=== PATIENT | male | born 1965 | race Caucasian/White ===

== ENCOUNTER 2019-01-14 14:38 | Inpatient (IN) | payer OTHER ==
[2019-01-14 19:58] VITALS: BMI 26.0
--- NOTE | 2019-01-14 21:25 | HP ---
COWS - Scale Resting Pulse: 1= [place] 81-100 Sweatin= Chills/Flushing Restless Observation: 3= Extraneous Movement Pupil Size: 1= Pupils >than Normal Bone or Joint Aches: 2= Severe Diffuse Aches Runny Nose/ Eye Tearin= Nasal Congestion GI Upset > 30mins: 3= Vomiting/Diarrhea Tremor Observation: 1= Tremor [place], Not Seen Yawning Observation: 1= 1-2x During Session Anxiety or Irritability: 1=Feels Anxious/Irritable Goose Flesh Skin: 0=Smooth Skin COWS Score: 15 CIWA Score - Admission Criteria [facility]ASAS Guidelines: Admission for Medically Managed Detox: Requires at least one of the followin. CIWA greater than 12 2. Seizures within the past 24 hours 3. Delirium tremens within the past 24 hours 4. Hallucinations within the past 24 hours 5. Acute intervention needed for co occurring medical disorder 6. Acute intervention needed for co occurring psychiatric disorder 7. Severe withdrawal that cannot be handled at a lower level of care (continued vomiting, continued diarrhea, abnormal vital signs) requiring intravenous medication and/or fluids 8. Admission ROS S - HPI Chief Complaint: heroin detox 53 yo with h/o depression, L knee pain, says he came off methadone MAT about 7 months ago and relapsed within a few days to using heroin. Says he does not like to be on methadone. 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 Says he went to see his counselor at the program requesting a detox facility and so was referred here today. pt states he is tired of using and is hoping to be abstinent after detox/rehab heroin- 3 bundles a day, IV, no h/o OD- alcohol- occasional use benzo- klonopin 2mg/day- buys from street [facility]- no tobacco- 30 cigs a day DUR- no recent controlled substances Utox: THC, opiates Allergies/Adverse Reactions: Allergies Allergy/AdvReac Type Severity Reaction Status Date / Time No Known Allergies Allergy Verified 01/19/12 10:43 - Ebola screening Have you traveled outside of the country in the last 21 days: No (N) Have you had contact with anyone from an Ebola affected area: No Do you have a fever: No Patient History - Patient Medical History Hx Anemia: No Hx Asthma: No Hx Chronic Obstructive Pulmonary Disease (COPD): No Hx Cancer: No Hx Cardiac Disorders: No Hx Congestive Heart Failure: No Hx Hypertension: No Hx Hypercholesterolemia: No Hx Pacemaker: No HX Cerebrovascular Accident: No Hx Seizures: No Hx Dementia: No Hx Diabetes: No Hx Gastrointestinal Disorders: No Hx Genitourinary Disorders: No Hx Sexually Transmitted Disorders: No Hx Renal Disease (ESRD): Yes (kidney stones) Hx Thyroid Disease: No Hx Human Immunodeficiency Virus (HIV): No Hx Hepatitis C: Yes (tx. with interferon 2001) Hx Depression: Yes (not on meds at this time) Hx Suicide Attempt: No Hx Schizophrenia: No Other Medical History: depression, knee pain - Patient Surgical History Past Surgical History: No Hx Neurologic Surgery: No Hx Cataract Extraction: No Hx Cardiac Surgery: No Hx Lung Surgery: No Hx Breast Surgery: No Hx Breast Biopsy: No Hx Abdominal Surgery: No Hx Appendectomy: No Hx Cholecystectomy: No Hx Genitourinary Surgery: Yes (stent placed for kidney stone removal) Hx Section: No Hx Orthopedic Surgery: No Anesthesia Reaction: No - PPD History Documented Results: Positive w/o proof Implanted On Prior [facility] Admission?: No PPD to be Administered?: No - Smoking Cessation Smoking history: Current every day smoker Have you smoked in the past 12 months: Yes Aproximately how many cigarettes per day: 30 Hx Chewing Tobacco Use: No Initiated information on smoking cessation: Yes 'Breaking Loose' booklet given: 01/14/19 - Substances abused Heroin Substance route: Injection Amount used: 30 bags /day Age of first use: 15 Date of last use: 01/14/19 Alcohol Substance route: Oral Frequency: Daily Amount used: 12 pack beer /day Age of first use: 12 Date of last use: 01/13/19 Benzodiazepine (Klonopin) Substance route: Oral Frequency: 1-2 times per week Amount used: 2 mg Age of first use: 23 Date of last use: 01/12/19 Family Disease History - Family Disease History Family History: Denies (pt denies) Admission Physical Exam BHS - Vital Signs Vital Signs: Vital Signs - 24 hr 01/14/19 19:53 Temperature 98.4 F Pulse Rate 80 Respiratory 19 Rate Blood Pressure 138/95 - Physical General Appearance: Yes: Mild Distress, Thin HEENTM: Yes: Hearing grossly Normal Respiratory: Yes: Within Normal Limits, Lungs Clear Cardiology: Yes: Within Normal Limits, Regular Rhythm, Regular Rate Abdominal: Yes: Within Normal Limits, Flat, Soft Back: Yes: Within Normal Limits, Normal Inspection Musculoskeletal: Yes: Within Normal Limits, Gait Steady Extremities: Yes: Within Normal Limits, Normal Inspection, Normal Range of Motion Neurological: Yes: Within Normal Limits, control officer II-XII NML intact, Fully Oriented, Alert Integumentary: Yes: Within Normal Limits, Track Price (bilateral arms- antecubital fossa) Lymphatic: Yes: Within Normal Limits - Diagnostic (1) Opioid use disorder Current Visit: Yes Status: Acute (2) Benzodiazepine abuse Current Visit: Yes Status: Acute (3) Marijuana dependence Current Visit: Yes Status: Acute (4) Depression Current Visit: Yes Status: Acute Breathalyzer - Breathalyzer Breathalyzer: 0 Urine Drug Screen - Test Device Lot number: [id number] Expiration date: 12/18/19 - Control Is test valid?: Yes - Results Drug screen NEGATIVE: No Urine drug screen results: THC-Marijuana, MOP-Opiates Inpatient Rehab Admission - Rehab Decision to Admit Inpatient rehab admission?: No
[2019-01-14] MEDS ORDERED: MAGNESIUM HYDROX 2400MG/30ML ORAL SUSPENSION 30 ML CUP PO PRN (21:37)
[2019-01-14] MEDS ORDERED: hydrOXYzine PAMOATE 25 MG CAPSULE (FP) PO PRN (21:37)
[2019-01-14] MEDS ORDERED: MAG HYDROX/AL HYDROX/SIMETH 30 ML UNIT-DOSE CUP PO PRN (21:37)
[2019-01-14] MEDS ORDERED: MAGNESIUM CITRATE 300 ML BOTTLE PO PRN (21:37)
[2019-01-14] MEDS ORDERED: IBUPROFEN 400 MG TABLET (FP) PO PRN (21:37)
[2019-01-14] MEDS ORDERED: ACETAMINOPHEN 325 MG TABLET (FP) PO PRN (21:37)
[2019-01-14] MEDS ORDERED: NICOTINE POLACRILEX 4 MG GUM BUC PRN (21:37)
[2019-01-14] MEDS ORDERED: BISMUTH SUBSALICYLATE 524 MG/30 ML UD PO PRN (21:37)
[2019-01-14] MEDS ORDERED: MENTHOL/PHENOL 1 EACH UD MM PRN (21:37)
[2019-01-14] MEDS ORDERED: METHADONE HCL 10 MG TABLET (FOR DETOX USE ONLY) PO ONE (23:00)
[2019-01-14] MEDS: THIAMINE HCL 100 MG TABLET (FP) PO SCH (23:23)
[2019-01-14] MEDS: cloNIDine HCL 0.1 MG TABLET PO PRN (23:23)
[2019-01-15 07:34] LABS: EPI CELLS 0.6 /HPF (0-5/HPF); HYALINE CASTS 0 /lpf (0-8); PH,URINE 5.5 (5.0-8.0); URINE APPEARANCE CLOUDY; URINE BACTERIA 3.9 /hpf (NEGATIVE); URINE BILIRUBIN NEGATIVE (NEGATIVE); URINE COLOR YELLOW; URINE GLUCOSE (UA) NEGATIVE (NEGATIVE); URINE KETONE NEGATIVE (NEGATIVE); URINE LEUK ESTERASE TRACE (NEGATIVE); URINE NITRITE NEGATIVE (NEGATIVE); URINE PROTEIN NEGATIVE (NEGATIVE); URINE RBC 0 /hpf (0-4); URINE UROBILINOGEN 0.2 mg/dL (0.2-1.0); URINE WBC 2 /hpf (0-5)
[2019-01-15] MEDS: METHOCARBAMOL 500 MG TABLET PO PRN ×2 (09:51→19:05)
[2019-01-15] MEDS: NICOTINE 21 MG/24 HOURS TOPICAL PATCH TD SCH (09:51)
[2019-01-15] MEDS: PRENATAL VITAMINS W/ FOLIC ACID TABLET (FP) PO SCH (09:51)
[2019-01-15] MEDS ORDERED: METHADONE HCL 10 MG TABLET (FOR DETOX USE ONLY) PO ONE (10:00)
--- NOTE | 2019-01-15 11:05 | PN ---
S COWS - Scale Resting Pulse: 0= [place] 80 or Below Sweatin= Chills/Flushing Restless Observation: 1= Difficult to Sit Still Pupil Size: 1= Pupils >than Normal Bone or Joint Aches: 1= Mild Discomfort Runny Nose/ Eye Tearin= Nasal Congestion GI Upset > 30mins: 0= None Tremor Observation of Outstretched Hands: 2= Slight Tremor Visible Yawning Observation: 2= >3x During Session Anxiety or Irritability: 2=Irritable/Anxious Goose Flesh Skin: 3=Piloerection COWS Score: 14 BHS Progress Note (SOAP) Subjective: body ache irritable restlessness Objective: 01/15/19 11:04 Vital Signs Temperature 96.8 F L 01/15/19 09:10 Pulse Rate 65 01/15/19 09:10 Respiratory Rate 18 01/15/19 09:10 Blood Pressure 132/82 01/15/19 09:10 O2 Sat by Pulse Oximetry (%) Laboratory Last Values Urine Color Yellow 01/14/19 10:00 Urine Appearance Cloudy 01/14/19 10:00 Urine pH 5.5 (5.0-8.0) 01/14/19 10:00 Ur Specific [place] 1.021 (1.010-1.035) 01/14/19 10:00 Urine Protein Negative (NEGATIVE) 01/14/19 10:00 Urine Glucose (UA) Negative (NEGATIVE) 01/14/19 10:00 Urine Ketones Negative (NEGATIVE) 01/14/19 10:00 Urine Blood Negative (NEGATIVE) 01/14/19 10:00 Urine Nitrite Negative (NEGATIVE) 01/14/19 10:00 Urine Bilirubin Negative (NEGATIVE) 01/14/19 10:00 Urine Urobilinogen 0.2 mg/dL (0.2-1.0) 01/14/19 10:00 Ur Leukocyte Esterase Trace (NEGATIVE) 01/14/19 10:00 Urine WBC (Auto) 2 /hpf (0-5) 01/14/19 10:00 Urine RBC (Auto) 0 /hpf (0-4) 01/14/19 10:00 Urine Casts (Auto) 0 /lpf (0-8) 01/14/19 10:00 U Epithel Cells (Auto) 0.6 /HPF (0-5/HPF) 01/14/19 10:00 Urine Bacteria (Auto) 3.9 /hpf (NEGATIVE) 01/14/19 10:00 lab noted Assessment: 01/15/19 11:05 opiate withdrawal sx Plan: continue detox discuss medication assisted maintenance treatment program
[2019-01-15 11:54] LABS: ALBUMIN 3.5 g/dl (3.4-5.0); BILIRUBIN,TOTAL 0.4 mg/dL (0.2-1); CALCIUM 9.4 mg/dL (8.5-10.1); CREATININE 0.7 mg/dL (0.55-1.3); POTASSIUM 4.2 mmol/L (3.5-5.1)
[2019-01-15 12:04] LABS: HEMATOCRIT 42.6 % (35.4-49); HEMOGLOBIN 13.9 GM/dL (11.7-16.9); MCH 28.6 pg (25.7-33.7); MCHC 32.5 g/dl (32.0-35.9); MEAN CELL VOLUME 87.9 fl (80-96); MEAN PLT VOLUME 10.1 fl (7.5-11.1); PLATELET COUNT 171 K/MM3 (134-434); RBC 4.85 M/mm3 (4.00-5.60); RDW 15.4 % (11.9-15.9); WHITE BLOOD COUNT 5.3 K/mm3 (4.0-10.0)
[2019-01-15] MEDS: ONDANSETRON *ODT* 4 MG TABLET SL PRN (12:20)
[2019-01-15] MEDS ORDERED: TRIMETHOBENZAMIDE HCL 200MG/2ML INJ IM ONE (18:45)
--- NOTE | 2019-01-15 19:27 | PN ---
[facility] Progress Note Note: S/P FALL, CLIENT SEEN ON FLOOR LEFT SIDE LYING HOLDING LEFT BROW. UNWITNESSED BY STAFF BUT ROOM MATE STATES HE SAW THE CLIENT FALL OUT OF BED. CLIENT STATES HE STRUCK THE LEFT SIDE OF HIS FACE ON THE FLOOR AND ALSO C/O LEFT KNEE PAIN ( CHRONIC). DENIES LOC, +LIGHTHEADEDNESS. Vital Signs Temperature 97.3 F L 01/15/19 19:27 Pulse Rate 66 01/15/19 19:27 Respiratory Rate 18 01/15/19 19:27 Blood Pressure 146/81 01/15/19 19:27 O2 Sat by Pulse Oximetry (%) A/O X3 APPEARS IN MODERATE DISTRESS LYING ON FLOOR REQUIRING 3 PERSON ASSIST OFF THE FLOOR HEENT- NCAT, EOMI, SHO, CV- RRR LUNGS CTAB SPINE- NO INJURIES NOT FROM W/O LIMITATIONS EXTREMITIES- C/O PAIN TO L KNEE (CHRONIC SKIN- DRY INTACT A- S/P FALL P- TRANSFER TO [facility] FOR CT OF HEAD XRAY OF LEFT KNEE CLIENT SIGNED OUT TO DR. WRIGHT
[2019-01-15] MEDS: THIAMINE HCL 100 MG TABLET (FP) PO SCH (22:40)
[2019-01-16] MEDS: clonazePAM 0.5 MG TABLET PO PRN (06:36)
[2019-01-16] MEDS: cloNIDine HCL 0.1 MG TABLET PO PRN (06:36)
[2019-01-16] MEDS ORDERED: METHADONE HCL 10 MG TABLET (FOR DETOX USE ONLY) PO ONE (10:00)
[2019-01-16] MEDS: NICOTINE 21 MG/24 HOURS TOPICAL PATCH TD SCH (10:04)
[2019-01-16] MEDS: PRENATAL VITAMINS W/ FOLIC ACID TABLET (FP) PO SCH (10:04)
[2019-01-16] MEDS ORDERED: cloNIDine HCL 0.1 MG TABLET PO PRN (11:21)
--- NOTE | 2019-01-16 11:22 | PN ---
BHS COWS - Scale Resting Pulse: 0= [place] 80 or Below Sweatin= Chills/Flushing Restless Observation: 1= Difficult to Sit Still Pupil Size: 0= Normal to Room Light Bone or Joint Aches: 1= Mild Discomfort Runny Nose/ Eye Tearin= Nasal Congestion GI Upset > 30mins: 1= Stomach Cramp Tremor Observation of Outstretched Hands: 2= Slight Tremor Visible Yawning Observation: 1= 1-2x During Session Anxiety or Irritability: 2=Irritable/Anxious Goose Flesh Skin: 0=Smooth Skin COWS Score: 10 BHS Progress Note (SOAP) Subjective: patient denies pain from fall no bruises no swelling noted alert speech coherent ambulating with steady gait patient "vomited" x 1 white saliva noted nurse report that white form noted tigan IM order patient refuses tigan IM "Its hurts" zofran 8 mg sl x 1 Objective: 01/16/19 11:41 Vital Signs Temperature 96.9 F L 01/16/19 11:38 Pulse Rate 55 L 01/16/19 11:38 Respiratory Rate 18 01/16/19 11:38 Blood Pressure 136/99 01/16/19 11:38 O2 Sat by Pulse Oximetry (%) Laboratory Last Values WBC 5.3 K/mm3 (4.0-10.0) 01/15/19 08:20 RBC 4.85 M/mm3 (4.00-5.60) 01/15/19 08:20 Hgb 13.9 GM/dL (11.7-16.9) 01/15/19 08:20 Hct 42.6 % (35.4-49) 01/15/19 08:20 MCV 87.9 fl (80-96) 01/15/19 08:20 MCH 28.6 pg (25.7-33.7) 01/15/19 08:20 MCHC 32.5 g/dl (32.0-35.9) 01/15/19 08:20 RDW 15.4 % (11.9-15.9) 01/15/19 08:20 Plt Count 171 K/MM3 (134-434) 01/15/19 08:20 MPV 10.1 fl (7.5-11.1) 01/15/19 08:20 Sodium 139 mmol/L (136-145) 01/15/19 08:20 Potassium 4.2 mmol/L (3.5-5.1) 01/15/19 08:20 Chloride 106 mmol/L (98-107) 01/15/19 08:20 Carbon Dioxide 27 mmol/L (21-32) 01/15/19 08:20 Anion Gap 6 MMOL/L (8-16) L 01/15/19 08:20 BUN 11 mg/dL (7-18) 01/15/19 08:20 Creatinine 0.7 mg/dL (0.55-1.3) 01/15/19 08:20 Est GFR (CKD-EPI)AfAm 123.13 01/15/19 08:20 Est GFR (CKD-EPI)NonAf 106.24 01/15/19 08:20 Random Glucose 135 mg/dL (74-106) H 01/15/19 08:20 Calcium 9.4 mg/dL (8.5-10.1) 01/15/19 08:20 Total Bilirubin 0.4 mg/dL (0.2-1) 01/15/19 08:20 AST 14 U/L (15-37) L 01/15/19 08:20 ALT 18 U/L (13-61) 01/15/19 08:20 Alkaline Phosphatase 87 U/L (45-117) 01/15/19 08:20 Total Protein 7.0 g/dl (6.4-8.2) 01/15/19 08:20 Albumin 3.5 g/dl (3.4-5.0) 01/15/19 08:20 Urine Color Yellow 01/14/19 10:00 Urine Appearance Cloudy 01/14/19 10:00 Urine pH 5.5 (5.0-8.0) 01/14/19 10:00 Ur Specific [place] 1.021 (1.010-1.035) 01/14/19 10:00 Urine Protein Negative (NEGATIVE) 01/14/19 10:00 Urine Glucose (UA) Negative (NEGATIVE) 01/14/19 10:00 Urine Ketones Negative (NEGATIVE) 01/14/19 10:00 Urine Blood Negative (NEGATIVE) 01/14/19 10:00 Urine Nitrite Negative (NEGATIVE) 01/14/19 10:00 Urine Bilirubin Negative (NEGATIVE) 01/14/19 10:00 Urine Urobilinogen 0.2 mg/dL (0.2-1.0) 01/14/19 10:00 Ur Leukocyte Esterase Trace (NEGATIVE) 01/14/19 10:00 Urine WBC (Auto) 2 /hpf (0-5) 01/14/19 10:00 Urine RBC (Auto) 0 /hpf (0-4) 01/14/19 10:00 Urine Casts (Auto) 0 /lpf (0-8) 01/14/19 10:00 U Epithel Cells (Auto) 0.6 /HPF (0-5/HPF) 01/14/19 10:00 Urine Bacteria (Auto) 3.9 /hpf (NEGATIVE) 01/14/19 10:00 RPR Titer Nonreactive (NONREACTIVE) 01/15/19 08:20 HIV 1&2 Antibody Screen Negative 01/15/19 08:20 HIV P24 Antigen Negative 01/15/19 08:20 lab noted Assessment: 01/16/19 11:41 opiate withdrawal sx Plan: continue detox
[2019-01-16] MEDS ORDERED: TRIMETHOBENZAMIDE HCL 200MG/2ML INJ IM ONE (11:30)
[2019-01-16] MEDS: ONDANSETRON *ODT* 4 MG TABLET SL PRN (12:04)
[2019-01-16] MEDS: amLODIPine BESYLATE 5 MG TABLET (FP) PO SCH ×2 (12:05→22:23)
[2019-01-16] MEDS: RANITIDINE HCL 150 MG TABLET (FP) PO SCH ×2 (12:05→22:23)
[2019-01-16] MEDS ORDERED: ONDANSETRON *ODT* 4 MG TABLET SL ONE (12:20)
[2019-01-16] MEDS: THIAMINE HCL 100 MG TABLET (FP) PO SCH (22:22)
[2019-01-16] MEDS: MELATONIN 5 MG TABLETS PO PRN (22:23)
[2019-01-17] MEDS: clonazePAM 0.5 MG TABLET PO PRN ×3 (00:31→22:21)
[2019-01-17] MEDS: METHOCARBAMOL 500 MG TABLET PO PRN (06:02)
[2019-01-17] MEDS: ACETAMINOPHEN 325 MG TABLET (FP) PO PRN (06:02)
[2019-01-17] MEDS ORDERED: METHADONE HCL 5 MG TABLET (FOR DETOX USE ONLY) PO ONE (10:00)
[2019-01-17] MEDS ORDERED: METHADONE HCL 10 MG TABLET (FOR DETOX USE ONLY) PO ONE (10:00)
[2019-01-17] MEDS ORDERED: TRIMETHOBENZAMIDE HCL 200MG/2ML INJ IM PRN (10:29)
[2019-01-17] MEDS: RANITIDINE HCL 150 MG TABLET (FP) PO SCH ×2 (10:55→22:18)
[2019-01-17] MEDS: NICOTINE 21 MG/24 HOURS TOPICAL PATCH TD SCH (10:55)
[2019-01-17] MEDS: amLODIPine BESYLATE 5 MG TABLET (FP) PO SCH ×2 (10:55→22:18)
[2019-01-17] MEDS: PRENATAL VITAMINS W/ FOLIC ACID TABLET (FP) PO SCH (10:55)
[2019-01-17] MEDS ORDERED: METHADONE DETOX 10 MG/1 ML [20ML VIAL] IM ONE (11:15)
--- NOTE | 2019-01-17 17:02 | PN ---
BHS COWS - Scale Resting Pulse: 0= [place] 80 or Below Sweatin= Chills/Flushing Restless Observation: 1= Difficult to Sit Still Pupil Size: 0= Normal to Room Light Bone or Joint Aches: 2= Severe Diffuse Aches Runny Nose/ Eye Tearin= None GI Upset > 30mins: 3= Vomiting/Diarrhea Tremor Observation of Outstretched Hands: 0= None Yawning Observation: 1= 1-2x During Session Anxiety or Irritability: 2=Irritable/Anxious Goose Flesh Skin: 0=Smooth Skin COWS Score: 10 BHS Progress Note (SOAP) Subjective: Sweating, Vomiting, Body Aches, Muscle Spasms, Diarrhea. Objective: PATIENT A & O X 3, OBSERVED AMBULATING ON UNIT UNASSISTED. IN NO ACUTE DISTRESS. 01/17/19 16:57 Vital Signs Temperature 97.2 F L 01/17/19 13:07 Pulse Rate 69 01/17/19 13:07 Respiratory Rate 18 01/17/19 13:07 Blood Pressure 152/101 H 01/17/19 13:07 O2 Sat by Pulse Oximetry (%) Laboratory Tests 01/14/19 01/15/19 01/15/19 10:00 08:20 08:20 WBC 5.3 RBC 4.85 Hgb 13.9 Hct 42.6 MCV 87.9 MCH 28.6 MCHC 32.5 RDW 15.4 Plt Count 171 MPV 10.1 Sodium 139 Potassium 4.2 Chloride 106 Carbon Dioxide 27 Anion Gap 6 L BUN 11 Creatinine 0.7 Est GFR (CKD-EPI)AfAm 123.13 Est GFR (CKD-EPI)NonAf 106.24 Random Glucose 135 H Calcium 9.4 Total Bilirubin 0.4 AST 14 L ALT 18 Alkaline Phosphatase 87 Total Protein 7.0 Albumin 3.5 Urine Color Yellow Urine Appearance Cloudy Urine pH 5.5 Ur Specific [place] 1.021 Urine Protein Negative Urine Glucose (UA) Negative Urine Ketones Negative Urine Blood Negative Urine Nitrite Negative Urine Bilirubin Negative Urine Urobilinogen 0.2 Ur Leukocyte Esterase Trace Urine WBC (Auto) 2 Urine RBC (Auto) 0 Urine Casts (Auto) 0 U Epithel Cells (Auto) 0.6 Urine Bacteria (Auto) 3.9 RPR Titer HIV 1&2 Antibody Screen HIV P24 Antigen 05/29/19 05/29/19 08:20 08:20 WBC RBC Hgb Hct MCV MCH MCHC RDW Plt Count MPV Sodium Potassium Chloride Carbon Dioxide Anion Gap BUN Creatinine Est GFR (CKD-EPI)AfAm Est GFR (CKD-EPI)NonAf Random Glucose Calcium Total Bilirubin AST ALT Alkaline Phosphatase Total Protein Albumin Urine Color Urine Appearance Urine pH Ur Specific [place] Urine Protein Urine Glucose (UA) Urine Ketones Urine Blood Urine Nitrite Urine Bilirubin Urine Urobilinogen Ur Leukocyte Esterase Urine WBC (Auto) Urine RBC (Auto) Urine Casts (Auto) U Epithel Cells (Auto) Urine Bacteria (Auto) RPR Titer Nonreactive HIV 1&2 Antibody Screen Negative HIV P24 Antigen Negative LABS NOTED. Assessment: 01/17/19 16:58 WITHDRAWAL SYMPTOMS. Plan: CONTINUE DETOX. PATIENT OFFERED OPPORTUNITY TO BE TAKEN VIA AMBULANCE TO BE EVALUATED AT [facility] ER FOR FREQUENT VOMITING THAT HE REPORTED DURING AM. HOWEVER, PATIENT DECLINED TO DO SO. INCREASE DAILY PO FLUID / WATER INTAKE. PRN TIGAN IM ORDERED FOR NAUSEA / VOMITING. PRN PEPTO-BISMOL PO FOR DIARRHEA. PRN ROBAXIN PO FOR BODY AHCES / MUSCLE SPASMS. TODAY'S DOSE OF METHADONE DETOX ORDERED IN IM FOR DUE TO VOMITING THAT PATIENT HAD BEEN EXPERIENCING.
[2019-01-17] MEDS: THIAMINE HCL 100 MG TABLET (FP) PO SCH (22:18)
[2019-01-17] MEDS: MELATONIN 5 MG TABLETS PO PRN (22:19)
[2019-01-18] MEDS: clonazePAM 0.5 MG TABLET PO PRN (05:22)
[2019-01-18] MEDS: METHOCARBAMOL 500 MG TABLET PO PRN (05:22)
[2019-01-18] MEDS: ACETAMINOPHEN 325 MG TABLET (FP) PO PRN (05:22)
[2019-01-18] MEDS ORDERED: METHADONE HCL 5 MG TABLET (FOR DETOX USE ONLY) PO ONE (06:00)
[2019-01-18 06:05] VITALS: BP 135/82; PULSE 75; TEMP 97
--- NOTE | 2019-01-18 17:45 | DS ---
[facility] Detox Discharge Summary Admission Date: 01/14/19 Discharge Date: 01/18/19 - History Present History: Cannabis Dependence, Opioid Dependence, Sedative Dependence Additional Comments: PATIENT LEFT DETOX UNIT BEFORE TIME IN WHICH LOGISTICS RESEARCH ENGINEER WAS AVAILABLE TO MEET WITH HIM TO CONDUCT PRE-DISCHARGE MEDICAL ASSESSMENT. PER CHILD SPECIALIST Juana JARRELL, PATIENT REFERRED TO [facility] ([place], [place]) FOR AFTERCARE. Pertinent Past History: Depression, History Of Fall (Occurred While Admitted for Detox - Patient Was Medically Evaluated at [facility] ER and Later Cleared to Return To Detox Unit), History of Renal Calculi, Hep C (Treated), Left Knee Pain. - Physical Exam Results Vital Signs: Vital Signs Temperature 97.0 F L 01/18/19 06:05 Pulse Rate 75 01/18/19 06:05 Respiratory Rate 18 01/18/19 06:29 Blood Pressure 135/82 01/18/19 06:05 O2 Sat by Pulse Oximetry (%) Pertinent Admission Physical Exam Findings: WITHDRAWAL SYMPTOMS. Laboratory Tests 01/14/19 01/15/19 01/15/19 10:00 08:20 08:20 WBC 5.3 RBC 4.85 Hgb 13.9 Hct 42.6 MCV 87.9 MCH 28.6 MCHC 32.5 RDW 15.4 Plt Count 171 MPV 10.1 Sodium 139 Potassium 4.2 Chloride 106 Carbon Dioxide 27 Anion Gap 6 L BUN 11 Creatinine 0.7 Est GFR (CKD-EPI)AfAm 123.13 Est GFR (CKD-EPI)NonAf 106.24 Random Glucose 135 H Calcium 9.4 Total Bilirubin 0.4 AST 14 L ALT 18 Alkaline Phosphatase 87 Total Protein 7.0 Albumin 3.5 Urine Color Yellow Urine Appearance Cloudy Urine pH 5.5 Ur Specific [place] 1.021 Urine Protein Negative Urine Glucose (UA) Negative Urine Ketones Negative Urine Blood Negative Urine Nitrite Negative Urine Bilirubin Negative Urine Urobilinogen 0.2 Ur Leukocyte Esterase Trace Urine WBC (Auto) 2 Urine RBC (Auto) 0 Urine Casts (Auto) 0 U Epithel Cells (Auto) 0.6 Urine Bacteria (Auto) 3.9 RPR Titer HIV 1&2 Antibody Screen HIV P24 Antigen 01/15/19 01/15/19 08:20 08:20 WBC RBC Hgb Hct MCV MCH MCHC RDW Plt Count MPV Sodium Potassium Chloride Carbon Dioxide Anion Gap BUN Creatinine Est GFR (CKD-EPI)AfAm Est GFR (CKD-EPI)NonAf Random Glucose Calcium Total Bilirubin AST ALT Alkaline Phosphatase Total Protein Albumin Urine Color Urine Appearance Urine pH Ur Specific [place] Urine Protein Urine Glucose (UA) Urine Ketones Urine Blood Urine Nitrite Urine Bilirubin Urine Urobilinogen Ur Leukocyte Esterase Urine WBC (Auto) Urine RBC (Auto) Urine Casts (Auto) U Epithel Cells (Auto) Urine Bacteria (Auto) RPR Titer Nonreactive HIV 1&2 Antibody Screen Negative HIV P24 Antigen Negative LABS NOTED. - Treatment Hospital Course: Detox Protocol Followed, Detoxed Safely, Responded well, Discharged Condition Good Patient has Accepted a Rehab Referral to: [facility] ([place], [place]). - Medication Discharge Medications: Ambulatory Orders Rizatriptan Benzoate [Maxalt] 10 mg PO BID PRN 01/19/12 - Diagnosis (1) Benzodiazepine abuse Status: Acute (2) Depression Status: Acute Qualifiers: Depression Type: unspecified Qualified Code(s): F32.9 - Major depressive disorder, single episode, unspecified (3) Fall Status: Acute Qualifiers: Encounter type: initial encounter Qualified Code(s): W19.XXXA - Unspecified fall, initial encounter (4) Marijuana dependence Status: Acute (5) Opioid use disorder Status: Acute - AMA Did Patient Leave Against Medical Advice: No
== END 2019-01-18 08:36 | disposition home or self-care (01) | DRG 773 ==
LOC: YASAS 14:38 → Y3N 22:50
PROVIDERS: ADMIT Surgery; ATTEND Surgery
PROC: HZ2ZZZZ Detoxification Services for Substance Abuse Treatment (ICD-10-PCS; principal; 2019-01-14)
DX: F11.23 Opioid dependence with withdrawal (principal); F13.230 Sedative, hypnotic or anxiolytic dependence with withdrawal, uncomplicated; F12.20 Cannabis dependence, uncomplicated; F32.9 Major depressive disorder, single episode, unspecified; Z86.19 Personal history of other infectious and parasitic diseases; S09.93XA Unspecified injury of face, initial encounter; S89.82XA Other specified injuries of left lower leg, initial encounter; W06.XXXA Fall from bed, initial encounter; Y93.89 Activity, other specified; Y92.230 Patient room in hospital as the place of occurrence of the external cause; Y99.8 Other external cause status
CPT/HCPCS: 36415; 71046-TC-FY; 80053; 81003; 85027; 86593; 87389; J0735; Q0162

== ENCOUNTER 2019-01-15 21:00 | Emergency (ER) | payer OTHER | END 2019-01-16 04:45 | LOC: JER 21:00 ==